=== PATIENT | female | born 1995 | race Hispanic/Latino ===

== ENCOUNTER 2020-06-05 10:59 | Outpatient (CLI) | payer SELFPAY ==
[2020-06-05 12:12] LABS: BHCG - Serum Negative (NEGATIVE)
[2020-06-05 12:13] LABS: Pregs Control Background? CLEAR/WHITE (CLR/WHITE); Pregs Control Bar Appear? YES (CONTROL BAR)
[2020-06-05 12:19] LABS: ALT (SGPT) 17 U/L (8-55); AST (SGOT) 15 U/L (5-34); Albumin 4.6 g/dL (3.5-5.0); Alkaline Phosphatase 70 U/L (40-110); Bilirubin, Direct 0.2 mg/dL (0.1-0.3); Bilirubin, Total 0.5 mg/dL (0.2-1.2); Protein, Total 7.5 g/dL (6.0-8.3)
[2020-06-05 22:23] LABS: SARS-CoV-2 PCR by NAA Not Detected (NotDetected)
== END 2020-06-05 11:00 | disposition home or self-care (01) ==
LOC: CSHLAB 10:59
PROVIDERS: ATTEND Surgery
DX: Z01.812 Encounter for preprocedural laboratory examination (principal); Z20.822 Contact with and (suspected) exposure to COVID-19; K80.20 Calculus of gallbladder without cholecystitis without obstruction
CPT/HCPCS: 80076; 84703; 87635; U0003; U0005

== ENCOUNTER 2021-06-21 14:05 | Outpatient (CLI) | payer OTHER | END 2021-06-21 14:06 | disposition home or self-care (01) | LOC: CSHULT 14:05 | PROVIDERS: ATTEND Family Medicine | DX: Z34.02 Encounter for supervision of normal first pregnancy, second trimester (principal); Z3A.20 20 weeks gestation of pregnancy | CPT/HCPCS: 76805 ==

== ENCOUNTER 2021-10-25 09:31 | Outpatient (CLI) | payer OTHER | END 2021-10-25 09:32 | disposition home or self-care (01) | LOC: CSHLAB 09:31 | PROVIDERS: ATTEND Family Medicine | DX: Z20.822 Contact with and (suspected) exposure to COVID-19 (principal) | CPT/HCPCS: U0003; U0005 ==

== ENCOUNTER 2021-10-28 20:28 | Inpatient (IN) | payer MEDICAID, OTHER ==
[~2021-10-28 20:28] MED LIST: Bupivacaine 0.25% HCL 30 ML VIAL ONE
[2021-10-28] MEDS ORDERED: HYDROcodone/Acetaminophen 5/325 mg Tablet PO PRN (20:45)
[2021-10-28] MEDS ORDERED: Acetaminophen 500 MG TAB PO PRN (20:45)
[2021-10-28] MEDS ORDERED: Lidocaine 1% (PF) 30 ML VIAL SC PRN (20:45)
[2021-10-28] MEDS ORDERED: Ibuprofen 800 MG TAB PO PRN (20:45)
[2021-10-28] MEDS ORDERED: Butorphanol Tartrate 1 MG/ML VIAL SLOW IVP PRN (20:45)
[2021-10-28] MEDS ORDERED: Promethazine HCl 25 MG/ML VIAL IM PRN (20:45)
[2021-10-28] MEDS ORDERED: hydrALAZINE 20 MG/ML VIAL SLOW IVP PRN (20:45)
[2021-10-28] MEDS ORDERED: Diphenoxylate HCl/Atropine Tablet PO PRN (20:45)
[2021-10-28] MEDS ORDERED: Methylergonovine 0.2 MG/ML VIAL IM PRN (20:45)
[2021-10-28] MEDS ORDERED: Ondansetron PF 4 MG/2 ML Vial IVP PRN (20:45)
[2021-10-28] MEDS ORDERED: Misoprostol 200 MCG TAB PR PRN (20:45)
[2021-10-28] MEDS ORDERED: Carboprost 250 MCG/ML AMP IM PRN (20:45)
[2021-10-28 21:39] LABS: Hemoglobin 12.1 g/dL (12.0-15.5); Mean Corpuscular HGB CONC 34.6 g/dL (32.0-36.0); Mean Corpuscular Hemoglobin 31.9 pg (27.0-33.0); Mean Corpuscular Volume 92.3 fl (81.6-98.3); Mean Platelet Volume 12.6 fl (7.4-10.4); Platelet Count 157 10x3/uL (150-450); RBC Distribution Width 14.7 % (11.5-14.5); Red Blood Cell (RBC) Count 3.79 10x6/uL (3.90-5.03); White Blood Cell (WBC) Count 7.3 10x3/uL (3.5-10.5)
[2021-10-28 21:43] VITALS: BMI 27.8
[2021-10-28] MEDS ORDERED: NS w/ Oxytocin 30 units 500 ML IV SCH ×2 (22:00)
[2021-10-28] MEDS ORDERED: Penicillin G Potassium 5 MILL.UNITS in Sodium Chloride 0.9% 100 ML IVPB SCH (22:00)
[2021-10-28] MEDS ORDERED: Lactated Ringer's 1,000 ML IV SCH (22:00)
[2021-10-28] MEDS: Misoprostol 100 MCG TAB VAG SCH (22:06)
[2021-10-28 22:11] LABS: Hep B Surf Ag Non-Reactive S/CO (NonReactive); Syphilis Antibody Nonreactive (Nonreactive); Syphilis Antibody Index 0.05 S/CO (<1.00 Non-Reactive)
[2021-10-28 22:18] LABS: HBSAg Index 0.19 S/CO (0-0.99)
[2021-10-29] MEDS ORDERED: Penicillin G 2.5 MILL.units 2.5 MILL.UNITS in Premix Bag 1 BAG IVPB SCH (02:00)
[2021-10-29] MEDS: Misoprostol 100 MCG TAB VAG SCH ×3 (02:05→23:11)
[2021-10-29] MEDS ORDERED: Lactated Ringer's 500 ML IV PRN (12:03)
[2021-10-29] MEDS ORDERED: Acetaminophen 325 MG TAB PO PRN (12:03)
[2021-10-29] MEDS ORDERED: Ondansetron PF 4 MG/2 ML Vial IVP PRN ×2 (12:03→20:06)
[2021-10-29] MEDS ORDERED: ePHEDrine Sulfate 50 MG/10 ML VIAL SLOW IVP PRN (12:03)
[2021-10-29] MEDS ORDERED: Naloxone HCl 0.4 mg/ml Vial IVP PRN ×2 (12:03)
[2021-10-29] MEDS ORDERED: Moisturizing Cream (Eucerin) 113 GM JAR TOP PRN (12:03)
[2021-10-29] MEDS ORDERED: diphenhydrAMINE 50 MG/ML VIAL IVP PRN (12:03)
[2021-10-29] MEDS ORDERED: Promethazine HCl 25 MG/ML VIAL IM PRN ×2 (12:03→20:06)
[2021-10-29] MEDS ORDERED: Fentanyl 2 mcg/Bup 0.1% Cadd 100 ML ONE (12:04)
[2021-10-29] MEDS ORDERED: Fentanyl 2 mcg/Bupivacaine 0.1% Cassette 100 ML EPIDURAL SCH (12:15)
[2021-10-29] MEDS ORDERED: Communication Order-Pharmacy FS SCH (12:15)
[2021-10-29] MEDS ORDERED: HYDROcodone/Acetaminophen 5/325 mg Tablet PO PRN ×2 (20:06)
[2021-10-29] MEDS ORDERED: diphenhydrAMINE 25 MG CAP PO PRN (20:06)
[2021-10-29] MEDS ORDERED: Preparation H Ointment 28 GM TUBE PR PRN (20:06)
[2021-10-29] MEDS ORDERED: Lanolin Ointment 7 GM TUBE TOP PRN (20:06)
[2021-10-29] MEDS ORDERED: hydrALAZINE 20 MG/ML VIAL SLOW IVP PRN (20:06)
[2021-10-29] MEDS ORDERED: Benzocaine-Menthol 82.5 ML CAN TOP PRN (20:06)
[2021-10-29] MEDS ORDERED: Milk Of Magnesia 30 ML UDCUP PO PRN (20:06)
[2021-10-29] MEDS ORDERED: Boostrix 0.5 ML (Tdap) VIAL IM ONE (20:06)
[2021-10-29] MEDS ORDERED: Bisacodyl 10 MG SUPP PR PRN (20:06)
[2021-10-29] MEDS ORDERED: NS w/ Oxytocin 30 units 500 ML IV SCH (21:00)
[2021-10-29] MEDS: Docusate 100 MG CAP PO SCH (23:06)
[2021-10-29] MEDS: Ibuprofen 800 MG TAB PO SCH (23:06)
[2021-10-30] MEDS: Ibuprofen 800 MG TAB PO SCH ×3 (05:51→22:29)
[2021-10-30] MEDS: Ferrous Sulfate 325 MG TAB PO SCH ×2 (09:13→19:37)
[2021-10-30] MEDS: Docusate 100 MG CAP PO SCH ×2 (09:13→22:29)
[2021-10-30] MEDS: Prenatal Vitamin 1 TAB PO SCH (09:14)
[2021-10-31] MEDS: Ibuprofen 800 MG TAB PO SCH ×2 (05:15→13:50)
[2021-10-31 07:43] VITALS: BP 109/56; TEMP 97.8
[2021-10-31] MEDS: Docusate 100 MG CAP PO SCH (08:48)
[2021-10-31] MEDS: Prenatal Vitamin 1 TAB PO SCH (08:48)
[2021-10-31] MEDS: Ferrous Sulfate 325 MG TAB PO SCH (08:48)
== END 2021-10-31 17:15 | disposition home or self-care (01) | DRG 807 ==
LOC: CSHLD 20:28 → CSHPP 10-29 19:39
PROVIDERS: ADMIT Family Medicine; ATTEND Family Medicine
PROC: 10E0XZZ Delivery of Products of Conception, External Approach (ICD-10-PCS; principal; 2021-10-29)
PROC: 3E0P7VZ Introduction of Hormone into Female Reproductive, Via Natural or Artificial Opening (ICD-10-PCS; 2021-10-29)
PROC: 0W8NXZZ Division of Female Perineum, External Approach (ICD-10-PCS; 2021-10-29)
DX: O42.02 Full-term premature rupture of membranes, onset of labor within 24 hours of rupture (principal); Z37.0 Single live birth; O24.429 Gestational diabetes mellitus in childbirth, unspecified control; Z3A.39 39 weeks gestation of pregnancy; Z90.49 Acquired absence of other specified parts of digestive tract
CPT/HCPCS: 36415; 36416; 51702; 85027; 86780; 86850; 86900; 86901; 87340; J0595; J2405; S0020